=== PATIENT | female | born 1970 | race Caucasian/White ===

== ENCOUNTER 2022-11-24 08:59 | Emergency (ER) | payer MEDICAID, SELFPAY ==
[2022-11-24 09:15] VITALS: BP 143/103; PULSE 94; RESP 24; TEMP 36.3; O2SAT 98; BMI 20.2
--- NOTE | 2022-11-24 10:04 | ED_ITS ---
HPI - Abdominal Pain General Date Seen: 11/24/22 Chief Complaint: Abdominal Pain Stated Complaint: R side pain Time Seen by Provider: 11/24/22 09:01 Source: patient and family Mode of arrival: ambulatory Limitations: no limitations History of Present Illness HPI narrative: Patient is a 52-year-old female presents here with her significant other, she presents with right upper quadrant pain, that occurred since 6:00 a.m. today, she describes spasm me a little bit overnight, but then worsened this morning, she has nausea associated with this but has not vomited, she has had a couple loose stools, but no blood within the stools. She has never before had pain like this but is worried it may be her liver gallbladder she called the nursing line and they sent her to the emergency room. She denies any fevers chills or sweats, no dysuria frequency no rashes she still has her gallbladder, she does admit to me she has chronic nause. No previous history of gallbladder surgery but she has had previous appendectomy done, and laparoscopy. Denies a history of blood clots, no painful breathing noted. She denies any fevers chills or sweats, no rashes, I was able to review the epic everywhere, she is followed mostly by [facility], for her neck, and primary care, [employer] shows last narcotic prescriptions were last February. Likely coinciding with her cervical fusion. She does tell me that she drinks and bit a alcohol, recently least a bottle of wine per day. This is confirmed by her significant other. Related Data Allergies Allergy/AdvReac Type Severity Reaction Status Date / Time bee venom protein (honey bee) Allergy Verified 11/24/22 09:15 [facility] Social History Smoking Status: Current every day smoker What tobacco products do you use: cigarettes Smoking packs per day: 0.5 Smoking cigarettes per day: 10.0 Years smoked: 38 Smoking pack-years: 19.00 Do you use any of these nicotine containing products: None Second hand tobacco smoke exposure: No How often do you have a drink containing alcohol: 4 or more times a week How many standard drinks containing alcohol do you have on a typical day: 7 to 9 How often do you have six or more drinks on one occasion: Daily or almost daily AUDIT-C Alcohol total score: 11 Non-prescribed substance use: declined to answer service: No Exam Narrative: Exam Narrative: Patient is seen in room 5, little bit disheveled but very pleasant, her pupils are equal round reactive to light there is no scleral icterus or redness or TMs are normal, a bit of a red ruben complexion is noted, her neck is supple, full range of motions with absence of meningismus, oropharynx is normal, nicotine pharyngitis is noted, hydration status is excellent, cranial nerves 3-12 are normal. Chest is good air entry bilaterally with no wheezing crackles noted heart sounds are normal, there is no clicks murmurs or gallops, her abdomen shows some tenderness in the right upper quadrant that also be spasmodic her colicky in nature. Bowel sounds are quiet. No other tenderness is noted throughout her abdomen, does not not seem to be peritoneal. No CVA tenderness is noted, scars from previous lumbar surgery well-healed are noted, extremity shows some bruising on her forearms bilaterally she tells me are from a dog, and she has a small subungual hematoma on her left 3rd finger. Moves all extremities independently well, a little bit of shakiness. Const: Vital Signs, click to edit/add: Vital Signs - 24 hr 11/24/22 09:15 11/24/22 11:50 Temperature 97.3 F L Pulse Rate [Pulse Oximeter] 94 65 Respiratory Rate 24 18 Blood Pressure [Ri ght Upper Arm] 143/103 H 150/99 H Pulse Oximetry 98 99 Oxygen Delivery Me thod Room Air Room Air Documenting provider has reviewed patient's vital signs: yes Course Course Hospital Course: I went back in and discussed with the patient she is still having the right upper chest discomfort. Her CT scan of both her chest abdomen and pelvis were all normal. There is no acute findings. I do think a lot of this is due to probably increase use of alcohol, I would counselor to be on Prilosec, is it possible that she has duodenal irritation, or ulcer. It is. And would recommend that she abstain from alcohol. Gastritis from alcohol use is also discussed with her. But she is not throwing up blood, and she is otherwise feels good her pain is also atypical for these is more colicky in nature. Despite having a normal ultrasound. I think we can let her go home at this point she can monitor the situation follow-up with primary care. I went over warning signs with her and when to come back and be seen. Vital Signs Vital signs: Initial Vital Signs Temperature 97.3 F L 11/24/22 09:15 Temperature Source Temporal Artery Scan 11/24/22 09:15 Pulse Rate 94 11/24/22 09:15 Pulse Rhythm Regular 11/24/22 09:15 Respiratory Rate 24 11/24/22 09:15 Blood Pressure 143/103 H 11/24/22 09:15 Blood Pressure Mean 116 H 11/24/22 09:15 Blood Pressure Position Supine 11/24/22 09:15 Pulse Oximetry 98 11/24/22 09:15 Oxygen Delivery Method Room Air 11/24/22 09:15 Vital Signs Temperature 97.3 F L 11/24/22 09:15 Pulse Rate 94 11/24/22 09:15 Respiratory Rate 24 11/24/22 09:15 Blood Pressure 143/103 H 11/24/22 09:15 Pulse Oximetry 98 11/24/22 09:15 Oxygen Delivery Method Room Air 11/24/22 09:15 Temperature 97.3 F L 11/24/22 09:15 Pulse Rate 65 11/24/22 11:50 Respiratory Rate 18 11/24/22 11:50 Blood Pressure 150/99 H 11/24/22 11:50 Pulse Oximetry 99 11/24/22 11:50 Oxygen Delivery Method Room Air 11/24/22 11:50 MDM - Abdominal Pain MDM Narrative Medical decision making narrative: During the evaluation of this patient I considered multiple differential diagnosis including life-threatening differentials which are appendicitis, aortic aneurysm, mesenteric ischemia, bowel perforation, ectopic , volvulus and bowel obstruction, other differential diagnosis include but are not limited to inflammatory bowel disease, cholecystitis, pancreatitis, hepatitis, gastritis, GERD, diverticulitis, peptic ulcer disease, pyelonephritis/UTI, renal colic/stone, pelvic inflammatory disease, cervicitis, endometritis, intrauterine , dysfunctional uterine bleeding, ovarian cyst/torsion, spontaneous as well as other etiologies Medical Records Attestation: I reviewed the patient's medical records. Lab Data Attestation: I reviewed the patient's lab results. Labs: Lab Results 11/24/22 11/24/22 Range/Units 09:15 11:26 WBC 8.06 (4.50-11.00) K/uL RBC 4.33 (4.00-5.20) m/uL Hgb 15.5 (12.0-16.0) gm/dL Hct 44.4 (33.0-51.0) % MCV 103 H (80-100) fL MCH 36 H (26-34) pg MCHC 35 (32-36) gm/dL RDW Coeff of Matilda 12.6 (11.5-15.5) % Plt Count 238 (140-440) K/uL Neut % (Auto) 73.2 H (42.0-72.0) % Lymph % (Auto) 14.8 L (20-44) % Towner % (Auto) 11.3 H (0.0-11.0) % Eos % (Auto) 0.4 (0.0-7.0) % Baso % (Auto) 0.2 (0.0-3.0) % Neut # (Auto) 5.90 (1.7-7.0) K/uL Lymph # (Auto) 1.20 (0.90-2.90) K/uL Towner # (Auto) 0.90 (0.00-0.90) K/UL Eos # (Auto) 0.03 (0.00-0.50) K/uL Baso # (Auto) 0.02 (0.00-0.30) K/uL D-Dimer Quant (PE/DVT) 1.20 H (0.00-0.50) ug/ml Sodium 136 (135-149) mmol/L Potassium 3.5 L (3.6-5.1) mmol/L Chloride 99 (96-114) mmol/L Carbon Dioxide 27 (20-32) mmol/L BUN 9 (7-30) mg/dL Creatinine 0.4 L (0.5-1.5) mg/dL Estimated Creat Clear 160.25 Estimated GFR 121 ml/min Glucose 124 H (60-115) mg/dL Calcium 9.1 (8.4-10.6) mg/dL Total Bilirubin 0.7 (0.1-1.5) mg/dL Direct Bilirubin 0.2 (0.0-0.5) mg/dL AST 50 H (12-35) U/L ALT 39 H (4-35) U/L Alkaline Phosphatase 108 (40-150) U/L Troponin I < 0.01 L (0.01-0.04) ng/mL C-Reactive Protein < 0.5 L (0.5-1.0) mg/dL Total Protein 7.3 (6.0-8.3) g/dL Albumin 4.4 (3.3-5.0) g/dL Amylase 53 (18-89) U/L Lipase 61 (23-300) U/L HCG, Qual Negative (Negative) Urine Color Yellow (Yellow) Urine Appearance Cloudy A (Clear) Urine pH >= 9.0 H (5.0-8.5) Ur Specific [place] 1.015 (1.000-1.030) Urine Protein 1+ A (Negative) Urine Glucose (UA) Negative (Negative) Urine Ketones 2+ A (Negative) Urine Blood Negative (Negative) Urine Nitrite Negative (Negative) Urine Bilirubin Negative (Negative) Urine Urobilinogen 0.2 (0.2-1.0) Ur Leukocyte Esterase Negative (Negative) Urine RBC 2-5 A (0-2) Urine WBC 0-2 (0-5) Ur Squamous Epith Cells None (None-Few) Urine Bacteria Many A (None) Urine Opiates Screen POSITIVE A* (Negative) Ur Oxycodone Screen Negative (Negative) Urine Methadone Screen Negative (Negative) Ur Propoxyphene Screen Negative (Negative) Ur Barbiturates Screen Negative (Negative) U Tricyclic Antidepress Negative (Negative) Ur Phencyclidine Scrn Negative (Negative) Ur Amphetamines Screen Negative (Negative) U Methamphetamines Scrn Negative (Negative) U Benzodiazepines Scrn Negative (Negative) Urine Cocaine Screen Negative (Negative) U Marijuana (THC) Screen POSITIVE A* (Negative) Ur Drug Screen Comment See Note Ethyl Alcohol 0.01 (0.01-0.03) % Imaging Data CT Chest/Ab/Pelvis: Radiologist's impression: Patient: JASBIR RAINEY Facility:?[facility] Patient ID:?[id number] Site Patient ID:?[id number]. Site :?[id number] Study:?CT Chest/Abd/Pelvis PE A/P WITH 95CC ISOVUE 370-11/24/2022 12:38:50 PM Ordering Physician:?Vasu Williamson Final Report: INDICATION: Right-sided chest pain and right upper quadrant abdominal pain. COMPARISON: No prior studies available for comparison TECHNIQUE: CT examination of the chest, abdomen and pelvis was performed following the uneventful intravenous administration of 95 cc of Isovue 370. Thin section axial images were obtained from the lung bases through the pubic symphysis. Oral contrast was not administered. Sagittal and coronal reformatted imaging was performed. The chest portion of the study was performed as a pulmonary arterial angiogram Please note that all CT scans at this facility use dose modulation, iterative reconstruction, and/or weight-based dosing when appropriate to reduce radiation dose to as low as reasonably achievable. FINDINGS: CHEST: No mediastinal or hilar adenopathy or mass. No pericardial effusion. Small hiatal hernia. Lungs and pleural spaces appear normal. PULMONARY ARTERY DISTRIBUTION: No evidence of pulmonary embolus Bilateral breast implants incidentally noted ABDOMEN & PELVIS: LIVER/BILIARY SYSTEM:The liver is normal in size and configuration. There is no focal mass and there is no intra- or extra hepatic biliary ductal dila tation.Hepatic steatosis. Normal appearing gallbladder ADRENALS: Normal KIDNEYS, URETERS and BLADDER:The kidneys appear normal. No visible mass, calculus or hydronephrosis. The ureters and bladder as visualized appear normal. SPLEEN:Benign-appearing cystic splenic lesion measuring 3.7 centimeters PANCREAS: Appears normal. RETROPERITONEUM and MESENTERY: There is no mass, adenopathy or aortic aneurysm. GASTROINTESTINAL SYSTEM: There is no evidence of diverticulitis, colitis, mechanical obstruction, or appendicitis. The small bowel as visualized appears normal.A few scattered diverticula. No acute appearing finding PELVIS: No mass, adenopathy or free fluid.An IUD appears to be properly located OSSEOUS STRUCTURES and ABDOMINAL WALL: There is an age-appropriate appearance of the osseous structures.No significant abdominal wall defect. OTHER: No free fluid or free air. IMPRESSION: 1. CHEST: No evidence of active pulmonary disease. 2. PULMONARY ARTERY DISTRIBUTION: No evidence of pulmonary embolus. 3. ABDOMEN & PELVIS: No visible cause for pain. Incidental nonacute appearing findings as above 4. OSSEOUS STRUCTURES: No acute appearing finding Please note that all CT scans at this facility use dose modulation, iterative reconstruction, and/or weight-based dosing when appropriate to reduce radiation dose to as low as reasonably achievable. Dictated by Shakeel Stanton MD @ 11/24/2022 12:53:23 PM (Electronic Signature) Patient: JASBIR RAINEY Facility:?[facility] Patient ID:?[id number] Site Patient ID:?[id number]. Site :?[id number] Study:?US Abdomen-11/24/2022 11:44:08 AM Ordering Physician:Chidi Williamson Final Report: INDICATION: Right upper quadrant abdomen pain. TECHNIQUE: Ultrasound abdomen limited. Sonographic images of the right upper quadrant were obtained using summers-scale and color Doppler images. COMPARISON: None. FINDINGS: Liver: Mild diffuse increased echogenicity. No discrete suspicious masses. No intrahepatic biliary dilatation. Gallbladder: No stones or sludge. Normal wall thickness. No pericholecystic fluid. Common bile duct: 4 mm. Pancreas: Unremarkable. Right kidney: Normal in size. Normal echotexture and cortex. No shadowing stones, or hydronephrosis. Vasculature: Proximal abdominal aorta and IVC are unremarkable. IMPRESSION: Mild diffuse increased echogenicity of the liver, likely diffuse hepatic steatos is. Otherwise unremarkable right upper quadrant ultrasound. Dictated by Devan Hayden MD @ 11/24/2022 12:43:04 PM (Electronic Signature) Discharge Plan Discharge Clinical Impression: Right upper quadrant abdominal pain, Alcohol abuse, Chest pain Patient Disposition: Home w/ Parent or Adult Condition: Stable Instructions: Chest Pain (ED), Abuse of Alcohol (ED), At-Risk Alcohol Use (ED), Abdominal Pain (ED) Additional Instructions: Home,rest and use of the prilosec 20 mg po daily and use of the zofran, follow up with primary care, return if fevers, chills, or change in the pain. Goes without being said to avoidance of alcohol is paramount. Activity Level: No Restrictions Discharge Diet: Regular Follow Up/Referrals: Provider,Not a Local [Primary Care Provider] - Stand Alone Forms: [employer] Info Instructions
[2022-11-24] MEDS: ONDANSETRON 2 MG/ML inj 4 MG IVP (10:07)
[2022-11-24] MEDS: HYDROmorphone 0.5 mg/0.5 ml inj IVP ×2 (10:07→11:42)
[2022-11-24] MEDS: 0.9 % SODIUM CHLORIDE 1000 ml 1,000 ML IV ×2 (10:07→11:42)
[2022-11-24 10:21] LABS: Basophils Absolute Auto 0.02 K/uL (0.00-0.30); Basophils Percent Auto 0.2 % (0.0-3.0); Eosinophils Absolute Auto 0.03 K/uL (0.00-0.50); Eosinophils Percent Auto 0.4 % (0.0-7.0); Hematocrit 44.4 % (33.0-51.0); Hemoglobin* 15.5 gm/dL (12.0-16.0); Immature Granulocytes Abs Auto 0.01 K/uL (0.00-0.30); Immature Granulocytes Pct Auto 0.1 %; Lymphocytes Percent Auto 14.8 % (20-44); Mean Corpuscular HGB Conc 35 gm/dL (32-36); Mean Corpuscular Hemoglobin 36 pg (26-34); Mean Corpuscular Volume 103 fL (80-100); Monocytes Percent Auto 11.3 % (0.0-11.0); Neutrophils Percent Auto 73.2 % (42.0-72.0); Platelet Count* 238 K/uL (140-440); RDW Coefficient of Variation % 12.6 % (11.5-15.5); Red Blood Count 4.33 m/uL (4.00-5.20); White Blood Count* 8.06 K/uL (4.50-11.00)
[2022-11-24 10:29] LABS: Slide Review Reflex No
[2022-11-24] MEDS: PANTOPRAZOLE SODIUM 40 MG INJ IVP (10:32)
[2022-11-24 10:34] LABS: Albumin* 4.4 g/dL (3.3-5.0); Chloride* 99 mmol/L (96-114); Potassium* 3.5 mmol/L (3.6-5.1); Sodium* 136 mmol/L (135-149)
[2022-11-24 10:36] LABS: Amylase* 53 U/L (18-89); Creatinine* 0.4 mg/dL (0.5-1.5); Est. Creatinine Clearance* 160.25; Estimated Glomerular Filt Rate 121 ml/min
[2022-11-24 10:37] LABS: Alkaline Phosphatase* 108 U/L (40-150); Aspartate Amino Transferase* 50 U/L (12-35); Bilirubin Direct* 0.2 mg/dL (0.0-0.5); Bilirubin Total* 0.7 mg/dL (0.1-1.5); Blood Urea Nitrogen* 9 mg/dL (7-30); Carbon Dioxide* 27 mmol/L (20-32); Glucose* 124 mg/dL (60-115); Lipase* 61 U/L (23-300); Total Protein* 7.3 g/dL (6.0-8.3)
[2022-11-24 10:38] LABS: Alanine Aminotransferase* 39 U/L (4-35); Calcium* 9.1 mg/dL (8.4-10.6); Ethanol* 0.01 % (0.01-0.03)
[2022-11-24 10:40] LABS: C Reactive Protein* < 0.5 mg/dL (0.5-1.0)
--- NOTE | 2022-11-24 10:48 | CRLHL7_ITS ---
For Patients: As a result of the Century Cures Act, medical imaging exams and procedure reports are released immediately into your electronic medical record. You may view this report before your referring provider. If you have questions, please contact your health care provider. INDICATION: Right upper quadrant abdomen pain. TECHNIQUE: Ultrasound abdomen limited. Sonographic images of the right upper quadrant were obtained using summers-scale and color Doppler images. COMPARISON: None. FINDINGS: Liver: Mild diffuse increased echogenicity. No discrete suspicious masses. No intrahepatic biliary dilatation. Gallbladder: No stones or sludge. Normal wall thickness. No pericholecystic fluid. Common bile duct: 4 mm. Pancreas: Unremarkable. Right kidney: Normal in size. Normal echotexture and cortex. No shadowing stones, or hydronephrosis. Vasculature: Proximal abdominal aorta and IVC are unremarkable. IMPRESSION: Mild diffuse increased echogenicity of the liver, likely diffuse hepatic steatosis. Otherwise unremarkable right upper quadrant ultrasound. Dictated by Devan Hayden MD @ 11/24/2022 12:43:04 PM (Electronically Signed)
[2022-11-24 11:33] LABS: Troponin I* < 0.01 ng/mL (0.01-0.04)
[2022-11-24 11:38] LABS: Appearance Urine Cloudy (Clear); Bilirubin Urine Negative (Negative); Blood Urine Negative (Negative); Color Urine Yellow (Yellow); Glucose Urine Negative (Negative); Ketones Urine 2+ (Negative); Leukocyte Esterase Urine Negative (Negative); Nitrite Urine Negative (Negative); Protein Urine 1+ (Negative); Specific Gravity Urine 1.015 (1.000-1.030); Urobilinogen Urine 0.2 (0.2-1.0)
[2022-11-24 11:39] LABS: HCG Qualitative* Negative (Negative)
[2022-11-24 11:40] LABS: pH Urine >= 9.0 (5.0-8.5)
--- NOTE | 2022-11-24 11:40 | CRLHL7_ITS ---
For Patients: As a result of the Century Cures Act, medical imaging exams and procedure reports are released immediately into your electronic medical record. You may view this report before your referring provider. If you have questions, please contact your health care provider. INDICATION: Right-sided chest pain and right upper quadrant abdominal pain. COMPARISON: No prior studies available for comparison TECHNIQUE: CT examination of the chest, abdomen and pelvis was performed following the uneventful intravenous administration of 95 cc of Isovue 370. Thin section axial images were obtained from the lung bases through the pubic symphysis. Oral contrast was not administered. Sagittal and coronal reformatted imaging was performed. The chest portion of the study was performed as a pulmonary arterial angiogram Please note that all CT scans at this facility use dose modulation, iterative reconstruction, and/or weight-based dosing when appropriate to reduce radiation dose to as low as reasonably achievable. FINDINGS: CHEST: No mediastinal or hilar adenopathy or mass. No pericardial effusion. Small hiatal hernia. Lungs and pleural spaces appear normal. PULMONARY ARTERY DISTRIBUTION: No evidence of pulmonary embolus Bilateral breast implants incidentally noted LIVER/BILIARY SYSTEM:The liver is normal in size and configuration. There is no focal mass and there is no intra- or extra hepatic biliary ductal dilatation.Hepatic steatosis. Normal appearing gallbladder ADRENALS: Normal KIDNEYS, URETERS and BLADDER:The kidneys appear normal. No visible mass, calculus or hydronephrosis. The ureters and bladder as visualized appear normal. SPLEEN:Benign-appearing cystic splenic lesion measuring 3.7 centimeters PANCREAS: Appears normal. RETROPERITONEUM and MESENTERY: There is no mass, adenopathy or aortic aneurysm. GASTROINTESTINAL SYSTEM: There is no evidence of diverticulitis, colitis, mechanical obstruction, or appendicitis. The small bowel as visualized appears normal.A few scattered diverticula. No acute appearing finding PELVIS: No mass, adenopathy or free fluid.An IUD appears to be properly located OSSEOUS STRUCTURES and ABDOMINAL WALL: There is an age-appropriate appearance of the osseous structures.No significant abdominal wall defect. OTHER: No free fluid or free air. IMPRESSION: 1. CHEST: No evidence of active pulmonary disease. 2. PULMONARY ARTERY DISTRIBUTION: No evidence of pulmonary embolus. appearing findings as above 4. OSSEOUS STRUCTURES: No acute appearing finding Please note that all CT scans at this facility use dose modulation, iterative reconstruction, and/or weight-based dosing when appropriate to reduce radiation dose to as low as reasonably achievable. Dictated by Shakeel Stanton MD @ 11/24/2022 12:53:23 PM (Electronically Signed)
[2022-11-24 11:45] LABS: WBC Urine 0-2 (0-5)
[2022-11-24 11:46] LABS: Bacteria Urine Many
[2022-11-24 11:49] LABS: Amphetamine Screen Urine Negative (Negative); Barbiturate Screen Urine Negative (Negative); Benzodiazepines Screen Urine Negative (Negative); Cocaine Screen Urine Negative (Negative); Methadone Screen Urine Negative (Negative); Methamphetamines Screen Urine Negative (Negative); Oxycodone Screen Urine Negative (Negative); Phencyclidine Screen Urine Negative (Negative); Tricyclic Antidepressant Urine Negative (Negative)
[2022-11-24 11:50] VITALS: BP 150/99; PULSE 65; RESP 18; O2SAT 99
[2022-11-24 12:03] LABS: Cannabinoid Screen Urine POSITIVE (Negative); Opiate Screen Urine POSITIVE (Negative)
[2022-11-24] MEDS: LORazepam 2 MG/ML inj 1 MG IVP (12:10)
== END 2022-11-24 13:24 | disposition home or self-care (01) ==
PROVIDERS: Emergency Provider Family Medicine
DX: R10.11 Right upper quadrant pain (principal); R07.9 Chest pain, unspecified; F10.90 Alcohol use, unspecified, uncomplicated
CPT/HCPCS: 36415; 71260; 74177; 76705; 80048; 80076; 80306; 81001; 82077; 82150; 83690; 84484; 84703; 85025; 85379; 86140; 87086; 87186; 96361; 96374; 96375; 99284; 99285; C9113; J1170; J2060; J2405; J7030; Q9967

== ENCOUNTER 2023-01-12 10:15 | Outpatient (CLI) | payer MEDICAID, SELFPAY | END 2023-01-12 10:16 | disposition home or self-care (01) | LOC: AMB 01-17 10:22 | PROVIDERS: Visit Provider Family Medicine | DX: R56.9 Unspecified convulsions (principal) | CPT/HCPCS: A0425; A0427 ==

== ENCOUNTER 2023-01-12 10:43 | Emergency (ER) | payer MEDICAID, SELFPAY ==
[2023-01-12] VITALS (19 sets, daily range): BP systolic 118–137; BP diastolic 80–96; PULSE 52–92; RESP 18; TEMP 36.4; O2SAT 90–98; BMI 20.5
--- NOTE | 2023-01-12 11:01 | ED.GENADULT ---
HPI - General Adult General Time Seen by Provider: 11:02 Date Seen: 01/12/23 Chief complaint: Seizure Stated complaint: Seizure Time Seen by Provider: 01/12/23 11:01 Source: patient, family, RN notes reviewed and old records reviewed Mode of arrival: EMS Limitations: no limitations History of Present Illness HPI narrative: 52-year-old female with history of alcohol dependence who presents today with concern for possible seizure. Per significant other who is with her, she was at home and complained of being lightheaded, subsequently passed out with eyes rolled back and body stiffness. He says that she was foaming at the mouth anything she quit breathing although she did not have any blue around the lips. He reports this lasted about 10 minutes. Patient reports she has had vomiting for the last day or so. Also 2 days ago fell and hit her head, unsure loss of conscious. She admits to almost daily alcohol use, last drink was last night about 7:00 p.m. Chronic neck pain which is unchanged from usual. Denies abdominal pain, diarrhea. Related Data Home Medications Medication Instructions Recorded Confirmed gabapentin 300 mg capsule 300 mg PO 3XD 01/12/23 01/12/23 levothyroxine 175 mcg tablet 175 mcg PO DAILY 01/12/23 01/12/23 meloxicam 7.5 mg tablet 7.5 mg PO DAILY 01/12/23 01/12/23 methocarbamol 750 mg tablet 750 mg PO Q6H PRN 01/12/23 01/12/23 trazodone 50 mg tablet 50 mg PO QPM 01/12/23 01/12/23 Allergies Allergy/AdvReac Type Severity Reaction Status Date / Time bee venom protein (honey bee) Allergy Verified 11/24/22 09:15 [facility] Social History Smoking Status: Current every day smoker What tobacco products do you use: cigarettes Smoking packs per day: 0.5 Smoking cigarettes per day: 10.0 Years smoked: 38 Smoking pack-years: 19.00 Do you use any of these nicotine containing products: None Second hand tobacco smoke exposure: No How often do you have a drink containing alcohol: 4 or more times a week How many standard drinks containing alcohol do you have on a typical day: 7 to 9 How often do you have six or more drinks on one occasion: Daily or almost daily AUDIT-C Alcohol total score: 11 Non-prescribed substance use: marijuana (any form) service: No Exam Narrative: Exam Narrative: General: Well-developed and well-nourished, no acute distress Head: Atraumatic and normocephalic Eyes: Pupils are equal reactive, extraocular motions intact, conjunctiva clear. Left periorbital ecchymosis ENT: External nose and ears are normal, posterior pharynx without erythema or exudate Neck: No midline cervical tenderness, full spontaneous range of motion the neck, trachea midline, no adenopathy Heart: Regular rate and rhythm no murmurs or thrills Lungs: Clear to auscultation bilaterally without wheezes or crackles Abdomen: Soft, nontender, nondistended with active bowel sounds Musculoskeletal: No tenderness, deformity, or edema Neurologic: Awake, alert, and oriented x3, no gross focal neurologic deficits, cranial nerves intact as tested Psych: Mood and affect are appropriate Skin: No rashes Const: Vital Signs, click to edit/add: Vital Signs - 24 hr 01/12/23 10:50 01/12/23 11:50 01/12/23 12:00 Temperature 97.5 F L Pulse Rate 88 72 Pulse Rate [Right Pulse Oximeter] 92 Respiratory Rate 18 Blood Pressure 120/89 Blood Pressure [Ri ght Upper Arm] 133/84 Pulse Oximetry 96 97 96 Oxygen Delivery Me thod Room Air 01/12/23 12:01 01/12/23 12:30 01/12/23 12:31 Temperature Pulse Rate 68 58 L 63 Pulse Rate [Right Pulse Oximeter] Respiratory Rate Blood Pressure 118/80 Blood Pressure [Ri ght Upper Arm] Pulse Oximetry 95 90 97 Oxygen Delivery Me thod Course Course Hospital Course: patient seen examined, prior records reviewed. Patient presents today with seizure versus syncope, recent head injury, chronic neck pain, vomiting. On exam here vital is stable, alert and oriented. Asked multiple times to have drink of water but is still having some nausea and did start dry heaving while I was in the room. Additional Zofran is ordered. Labs, head CT, cervical spine CT ordered along with fluids and additional Zofran. Will continue to monitor. Reevaluation(s) Time of Reevaluation #1: 12:19 Reevaluation #1: CT scan of the head independently interpreted by me does not demonstrate any acute intracranial finding. CT scan of the cervical spine demonstrates postoperative changes but no acute findings. CBC independently interpreted by me with mild thrombocytopenia, otherwise normal white blood cell count. Sodium 126, glucose slightly elevated at 199, lactate 3.2 likely representing either dehydration or metabolic acidosis from seizure, sepsis less likely. AST, ALT, and alkaline phosphatase slightly elevated consistent with history of alcohol dependence, troponin is negative. Remaining labs are pending. Time of Reevaluation #2: 14:59 Reevaluation #2: Urinalysis independently interpreted by me demonstrates white blood cells, red cells, no nitrites but some leukocyte esterase. Patient will be started on antibiotics for this. Discussed findings and plan with patient. 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 Patient rechecked, she is having a little nausea again and also feeling anxious so Ativan IV will be ordered. Discussed admission for further evaluation and treatment versus discharge, patient would prefer to go home. She will be sent home with cefdinir for her urinary tract infection as well as [place] and Zofran, follow-up with primary care as needed. Vital Signs Vital signs: Initial Vital Signs Temperature 97.5 F L 01/12/23 10:50 Temperature Source Temporal Artery Scan 01/12/23 10:50 Pulse Rate 92 01/12/23 10:50 Respiratory Rate 18 01/12/23 10:50 Blood Pressure 133/84 01/12/23 10:50 Blood Pressure Mean 100 01/12/23 10:50 Blood Pressure Position Sitting 01/12/23 10:50 Pulse Oximetry 96 01/12/23 10:50 Oxygen Delivery Method Room Air 01/12/23 10:50 Vital Signs Temperature 97.5 F L 01/12/23 10:50 Pulse Rate 92 01/12/23 10:50 Respiratory Rate 18 01/12/23 10:50 Blood Pressure 133/84 01/12/23 10:50 Pulse Oximetry 96 01/12/23 10:50 Oxygen Delivery Method Room Air 01/12/23 10:50 Temperature 97.5 F L 01/12/23 10:50 Pulse Rate 63 01/12/23 12:31 Respiratory Rate 18 01/12/23 10:50 Blood Pressure 118/80 01/12/23 12:31 Pulse Oximetry 97 01/12/23 12:31 Oxygen Delivery Method Room Air 01/12/23 10:50 Medical Decision Making Lab Data Labs: Lab Results 01/12/23 01/12/23 Range/Units 11:30 14:35 WBC 7.05 (4.50-11.00) K/uL RBC 4.16 (4.00-5.20) m/uL Hgb 14.6 (12.0-16.0) gm/dL Hct 41.5 (33.0-51.0) % MCV 100 (80-100) fL MCH 35 H (26-34) pg MCHC 35 (32-36) gm/dL RDW Coeff of Matilda 12.6 (11.5-15.5) % Plt Count 112 L (140-440) K/uL Neut % (Auto) 83.9 H (42.0-72.0) % Lymph % (Auto) 9.5 L (20-44) % [place] % (Auto) 6.1 (0.0-11.0) % Eos % (Auto) 0.3 (0.0-7.0) % Baso % (Auto) 0.1 (0.0-3.0) % Neut # (Auto) 5.90 (1.7-7.0) K/uL Lymph # (Auto) 0.70 L (0.90-2.90) K/uL [place] # (Auto) 0.40 (0.00-0.90) K/UL Eos # (Auto) 0.02 (0.00-0.50) K/uL Baso # (Auto) 0.01 (0.00-0.30) K/uL INR 0.84 L (0.91-1.10) Sodium 126 L (135-149) mmol/L Potassium 3.4 L (3.6-5.1) mmol/L Chloride 94 L (96-114) mmol/L Carbon Dioxide 28 (20-32) mmol/L BUN 9 (7-30) mg/dL Creatinine 0.4 L (0.5-1.5) mg/dL Estimated Creat Clear 162.66 Estimated GFR 121 ml/min Glucose 199 H (60-115) mg/dL Lactate 3.2 H (0.5-1.9) mmol/L Calcium 8.9 (8.4-10.6) mg/dL Magnesium 1.8 (1.5-2.6) mg/dL Total Bilirubin 1.3 (0.1-1.5) mg/dL Direct Bilirubin 0.1 (0.0-0.5) mg/dL AST 71 H (12-35) U/L ALT 37 H (4-35) U/L Alkaline Phosphatase 151 H (40-150) U/L Total Protein 6.7 (6.0-8.3) g/dL Albumin 4.2 (3.3-5.0) g/dL Lipase 113 (23-300) U/L Urine Color Jessica A (Yellow) Urine Appearance Cloudy A (Clear) Urine pH 8.5 (5.0-8.5) Ur Specific [place] 1.015 (1.000-1.030) Urine Protein 1+ A (Negative) Urine Glucose (UA) Negative (Negative) Urine Ketones Negative (Negative) Urine Blood 2+ A (Negative) Urine Nitrite Negative (Negative) Urine Bilirubin Negative (Negative) Urine Urobilinogen 0.2 (0.2-1.0) Ur Leukocyte Esterase 1+ A (Negative) Urine RBC 50-100 A (0-2) Urine WBC 50-100 A (0-5) Ur Squamous Epith Cells Few (None-Few) Urine Bacteria Few A (None) Ur Drug Screen Comment See Note Ethyl Alcohol < 0.01 L (0.01-0.03) % POC Troponin I 0.00 L (0.01-0.04) ng/ml ECG Data Attestation: I personally reviewed and interpreted this ECG as follows: Prior ECG tracings: not available for review Interpretation: Performed 11:31 a.m. demonstrates sinus rhythm with sinus rhythm a heart rate 71, no acute ST elevations or depressions, normal axis, prolonged QTC, WA 138, QTC 154. No prior for comparison. Discharge Plan Discharge Prescriptions: No Action levothyroxine 175 mcg tablet 175 mcg PO DAILY trazodone 50 mg tablet 50 mg PO QPM meloxicam 7.5 mg tablet 7.5 mg PO DAILY methocarbamol 750 mg tablet 750 mg PO Q6H PRN gabapentin 300 mg capsule 300 mg PO 3XD Follow Up/Referrals: Provider,Not a Local [Primary Care Provider] -
--- NOTE | 2023-01-12 11:12 | CRLHL7_ITS ---
For Patients: As a result of the Century Cures Act, medical imaging exams and procedure reports are released immediately into your electronic medical record. You may view this report before your referring provider. If you have questions, please contact your health care provider. INDICATION: Trauma. TECHNIQUE: CT cervical spine without contrast. COMPARISON: None. FINDINGS: Vertebrae: C5-C7 ACDF. Alignment is normal. There are no fractures or suspicious bony lesions. Discs and facet joints: There are diffuse degenerative changes in the disc spaces and facet joints. Extraspinal findings: Paraspinous soft tissues are unremarkable. IMPRESSION: 1. No sign of acute injury. 2. Multilevel degenerative spondylosis. Please note that all CT scans at this facility use dose modulation, iterative reconstruction, and/or weight-based dosing when appropriate to reduce radiation dose to as low as reasonably achievable. Dictated by Raymundo Dennis MD @ 01/12/2023 12:42:39 PM (Electronically Signed)
--- NOTE | 2023-01-12 11:12 | CRLHL7_ITS ---
For Patients: As a result of the Century Cures Act, medical imaging exams and procedure reports are released immediately into your electronic medical record. You may view this report before your referring provider. If you have questions, please contact your health care provider. INDICATION: Fall. TECHNIQUE: CT head without contrast. COMPARISON: None. FINDINGS: CSF spaces: Within normal limits for age. Brain parenchyma and extra-axial spaces: The summers-white differentiation is normal. No sign of mass, hemorrhage, or midline shift. No extra-axial fluid collection. Skull base and calvarium: The visualized paranasal sinuses and mastoid air cells demonstrate no acute or significant findings. The visualized orbits are grossly unremarkable. No skull fractures. IMPRESSION: No acute intracranial abnormality on this noncontrast study. Please note that all CT scans at this facility use dose modulation, iterative reconstruction, and/or weight-based dosing when appropriate to reduce radiation dose to as low as reasonably achievable. Dictated by Raymundo Dennis MD @ 01/12/2023 12:37:49 PM (Electronically Signed)
[2023-01-12 11:46] LABS: White Blood Count* 7.05 K/uL (4.50-11.00)
[2023-01-12 11:47] LABS: Basophils Absolute Auto 0.01 K/uL (0.00-0.30); Basophils Percent Auto 0.1 % (0.0-3.0); Eosinophils Absolute Auto 0.02 K/uL (0.00-0.50); Eosinophils Percent Auto 0.3 % (0.0-7.0); Hematocrit 41.5 % (33.0-51.0); Hemoglobin* 14.6 gm/dL (12.0-16.0); Immature Granulocytes Abs Auto 0.01 K/uL (0.00-0.30); Immature Granulocytes Pct Auto 0.1 %; Lactate* 3.2 mmol/L (0.5-1.9); Lymphocytes Percent Auto 9.5 % (20-44); Mean Corpuscular HGB Conc 35 gm/dL (32-36); Mean Corpuscular Hemoglobin 35 pg (26-34); Mean Corpuscular Volume 100 fL (80-100); Monocytes Percent Auto 6.1 % (0.0-11.0); Neutrophils Percent Auto 83.9 % (42.0-72.0); Platelet Count* 112 K/uL (140-440); RDW Coefficient of Variation % 12.6 % (11.5-15.5); Red Blood Count 4.16 m/uL (4.00-5.20)
[2023-01-12 11:49] LABS: Slide Review Reflex No
[2023-01-12] MEDS: ONDANSETRON 2 MG/ML inj 4 MG IVP (11:58)
[2023-01-12] MEDS: KETOROLAC 15 MG/ML inj IVP (11:58)
[2023-01-12] MEDS: 0.9 % SODIUM CHLORIDE 1000 ml 1,000 ML IV (11:59)
[2023-01-12] MEDS: PANTOPRAZOLE SODIUM 40 MG INJ IVP (11:59)
[2023-01-12 12:04] LABS: Albumin* 4.2 g/dL (3.3-5.0)
[2023-01-12 12:05] LABS: Chloride* 94 mmol/L (96-114); Potassium* 3.4 mmol/L (3.6-5.1); Sodium* 126 mmol/L (135-149)
[2023-01-12 12:07] LABS: Carbon Dioxide* 28 mmol/L (20-32); Creatinine* 0.4 mg/dL (0.5-1.5); Est. Creatinine Clearance* 162.66; Estimated Glomerular Filt Rate 121 ml/min
[2023-01-12 12:08] LABS: Alanine Aminotransferase* 37 U/L (4-35); Alkaline Phosphatase* 151 U/L (40-150); Aspartate Amino Transferase* 71 U/L (12-35); Bilirubin Direct* 0.1 mg/dL (0.0-0.5); Bilirubin Total* 1.3 mg/dL (0.1-1.5); Blood Urea Nitrogen* 9 mg/dL (7-30); Calcium* 8.9 mg/dL (8.4-10.6); Glucose* 199 mg/dL (60-115); Lipase* 113 U/L (23-300); Magnesium* 1.8 mg/dL (1.5-2.6); Total Protein* 6.7 g/dL (6.0-8.3)
[2023-01-12 12:21] LABS: INR 0.84 (0.91-1.10)
[2023-01-12 12:22] LABS: Ethanol* < 0.01 % (0.01-0.03)
[2023-01-12] MEDS: HYDROCODONE-ACETAMIN 5-325 MG 1 TAB PO (13:24)
[2023-01-12 14:41] LABS: Appearance Urine Cloudy (Clear); Bilirubin Urine Negative (Negative); Blood Urine 2+ (Negative); Color Urine Amber (Yellow); Glucose Urine Negative (Negative); Ketones Urine Negative (Negative); Leukocyte Esterase Urine 1+ (Negative); Nitrite Urine Negative (Negative); Protein Urine 1+ (Negative); Specific Gravity Urine 1.015 (1.000-1.030); Urobilinogen Urine 0.2 (0.2-1.0); pH Urine 8.5 (5.0-8.5)
[2023-01-12 14:54] LABS: Amphetamine Screen Urine Negative (Negative); Barbiturate Screen Urine Negative (Negative); Benzodiazepines Screen Urine Negative (Negative); Cocaine Screen Urine Negative (Negative); Methadone Screen Urine Negative (Negative); Methamphetamines Screen Urine Negative (Negative); Oxycodone Screen Urine Negative (Negative); Phencyclidine Screen Urine Negative (Negative); Tricyclic Antidepressant Urine Negative (Negative)
[2023-01-12 14:57] LABS: Bacteria Urine Few; RBC Urine 50-100 (0-2); Squamous Epithelial Cell Urine Few (None-Few); WBC Urine 50-100 (0-5)
[2023-01-12 15:01] LABS: Cannabinoid Screen Urine POSITIVE (Negative); Opiate Screen Urine POSITIVE (Negative)
[2023-01-12] MEDS: cefTRIAXone 1 GM in 0.9 % SODIUM CHLORIDE Mini-bag 100 ML IVPB (15:19)
[2023-01-12] MEDS: LORazepam 2 MG/ML inj 0.5 MG IVP (15:19)
== END 2023-01-12 16:00 | disposition home or self-care (01) ==
PROVIDERS: Emergency Provider Family Medicine
DX: N39.0 Urinary tract infection, site not specified (principal); R11.0 Nausea
CPT/HCPCS: 36415; 70450; 72125; 80048; 80076; 80306; 81001; 82077; 83605; 83690; 83735; 84484; 85025; 85610; 87086; 93005; 96374; 96375; 99284; 99285; A9270; C9113; J0696; J1885; J2060; J2405; J7030